=== PATIENT | female | born 1990 | race Caucasian/White ===

== ENCOUNTER 2017-07-22 12:23 | Emergency (ER) | payer OTHER ==
[~2017-07-22] VITALS: Ht 154.9 cm; Wt 81.6 kg
[~2017-07-22 12:23] MED LIST: AMOXICILLIN500 MG PO; ANAPROX DS550 MG PO; ATARAX,VISTARIL50 MG PO; ATIVAN0.5 MG PO; ATIVAN2 MG PO; AUGMENTIN 875 M1 TAB PO; BACTRIM DS 8001 TA1 PO; CARBIDOPA/LEVOD1 TA1 PO; CEPHALEXIN500 M1 PO; CIPRO250 MG PO; CIPRO500 MG PO; CIPROFLOXACIN500 MG PO; CLARITIN10 MG PO; CLARITIN5 MG/5 ML PO; CLEOCIN150 MG PO; CLINDAMYCIN150 MG PO; CODIENE PO; COMPAZINE10 MG PO; FIORICET 325 MG1 TAB PO; FLEXERIL10 MG PO; FLEXERIL5 MG PO; Fioricet 325 MG1 TAB PO; HYDROCODONE BIT1 T11 PO; INDERAL LA60 MG PO; INDERAL10 MG PO; INDERAL40 MG PO; KEFLEX500 MG PO; KLONOPIN PO; KLONOPIN1 MG PO; LOPRESSOR25 MG PO; MACROBID100 M1 PO; METHOCARBAMOL750 M1 PO; MULTIVITAMIN FO1 CAP PO; NKHM; NORFLEX100 MG PO; ONDANSETRON HYDR4 M1 PO; PEN-VEE K500 MG PO; POTASSIUM ACETATE; POTASSIUM PO; PYRIDIUM200 MG PO; ROBAXIN PO; ROBAXIN-750750 MG PO; ROBAXIN750 MG PO; SINEMET 25-100M1 TAB PO; SUBOXONE 8 MG-1 EACH SL; TAMIFLU75 MG PO; TORADOL10 MG PO; TRAMADOL HCL50 MG PO; TRIMOX500 MG PO; TYLENOL PO; TYLENOL W/CODEI1 TA2 PO; TYLENOL325 M1 PO; TYLENOL500 MG PO; ULTRAM50 MG PO; VALTREX500 MG PO; VICODIN 5/500 505 MG PO; VICODIN HP 6601 TA1 PO; VICODIN1 TAB PO; VISTARIL25 M2 PO; VISTARIL25 MG PO; VITAMINS PO; ZITHROMAX Z PA250 MG PO; ZITHROMAX100 MG/51 PO; ZOFRAN 4 MG ED2 TAB PO; ZOFRAN ODT4 MG SL; ZOLOFT50 MG PO
[2017-07-22] MEDS ORDERED: GABAPENTIN TAB600 MG PO (12:44)
[2017-07-22] MEDS ORDERED: PENICILLIN-VK500 MG PO (13:14)
== END 2017-07-22 13:26 | disposition home or self-care (01) ==
LOC: ED 12:23
DX: K02.9 Dental caries, unspecified (principal); F14.10 Cocaine abuse, uncomplicated; E66.9 Obesity, unspecified; F17.200 Nicotine dependence, unspecified, uncomplicated; F11.10 Opioid abuse, uncomplicated; Z86.14 Personal history of Methicillin resistant Staphylococcus aureus infection; Z90.49 Acquired absence of other specified parts of digestive tract; Z98.890 Other specified postprocedural states; Z88.6 Allergy status to analgesic agent; Z79.899 Other long term (current) drug therapy

== ENCOUNTER 2018-07-04 18:08 | Inpatient (IN) | payer OTHER ==
[~2018-07-04] VITALS: Ht 154.9 cm; Wt 81.6 kg
[~2018-07-04 18:08] MED LIST changes: +GABAPENTIN TAB600 MG PO; +PENICILLIN-VK500 MG PO
[2018-07-04 18:09] VITALS: BP 124/74
[2018-07-04 18:35] LABS: URINE AMPHETAMINES < 1000 (1000ng/ml); URINE BARBITURATES < 200 (200ng/ml); URINE BENZODIAZEPINES > 200 (200ng/ml); URINE CANNABINOIDS (THC) < 50 (50ng/ml); URINE COCAINE > 300 (300ng/ml); URINE METHADONE < 300 (300ng/ml); URINE OPIATES < 300 (300ng/ml)
[2018-07-04 18:36] LABS: BILIRUBIN NEGATIVE (NEGATIVE); BLOOD NEGATIVE (NEGATIVE); CLARITY CLEAR (CLEAR); COLOR YELLOW (YELLOW); GLUCOSE NEGATIVE (NEGATIVE); KETONE NEGATIVE (NEGATIVE); LEUKO ESTERASE TRACE (NEGATIVE); NITRITE NEGATIVE (NEGATIVE); PH 7.5 (5.0-9.0); SPECIFIC GRAVITY 1.015 (1.005-1.030); URINE PHENCYCLIDINE < 25 (25ng/ml); UROBILINOGEN 0.2 E.U./dl (0.2-1.0)
[2018-07-04] MEDS ORDERED: CLONAZEPAM0.5 M2 PO (18:41)
[2018-07-04] MEDS ORDERED: QUETIAPINE FUM200 M3 PO (18:41)
[2018-07-04] MEDS ORDERED: LATU40TA1 PO (18:42)
[2018-07-04 18:56] LABS: BACTERIA 3+; EPITHELIAL CELLS 21-30
[2018-07-04 19:15] LABS: BASO # 0.1 10*3/uL (0.0-0.1); BASO % 0.8 % (0.0-1.0); EOS # 0.1 10*3/uL (0.0-0.4); EOS % 1.7 % (1.0-4.0); HEMATOCRIT 44.6 % (37.0-47.0); HEMOGLOBIN 14.7 g/dl (12.0-16.0); LYMPH # 1.6 10*3/uL (1.3-4.4); LYMPH % 26.1 % (27.0-41.0); MEAN CELL VOLUME 90.1 fl (81.0-99.0); MEAN CORPUSCULAR HGB 29.7 pg (27.0-31.0); MEAN PLATELET VOLUME 9.5 fl (9.6-12.3); MONO # 0.4 10*3/uL (0.1-1.0); MONO % 6.1 % (3.0-9.0); NEUT # 3.9 10*3/uL (2.3-7.9); NEUT % 65.1 % (47.0-73.0); PLATELET COUNT AUTOMATED 260 10*3/uL (130-400); RED BLOOD COUNT 4.95 10*6/uL (4.10-5.10); RED CELL DISTRI WIDTH 13.5 % (0-14.5)
[2018-07-04 19:30] LABS: ALBUMIN 3.5 gm/dl (3.1-4.5); ALKALINE PHOSPHATASE 76 U/L (45-117); BUN 14 mg/dl (7-24); CHLORIDE 111 mmol/L (98-107); CREATININE 0.66 mg/dL (0.55-1.02); POTASSIUM 3.9 mmol/L (3.5-5.1); SGOT/AST 17 IU/L (3-35); SGPT/ALT 20 U/L (12-78); SODIUM 141 mmol/L (136-145)
[2018-07-04 19:31] LABS: ACETAMINOPHEN (TYLENOL) < 5.0 ug/ml (10-30); ETHYL ALCOHOL < 3.0 mg/dl (<3)
[2018-07-04 20:00] VITALS: BP 120/70
[2018-07-04 20:50] VITALS: BP 120/70
[2018-07-05] VITALS: BP 108/56
[2018-07-05 08:00] VITALS: BP 115/67
[2018-07-05 12:00] VITALS: BP 109/49
== END 2018-07-05 14:35 | disposition left against medical advice (07) | DRG 894 ==
LOC: ED 18:08 → 4E 19:59 → EDHOLD 19:59 → 4E 20:43
PROVIDERS: Emergency Medicine; Physician Assistant
DX: F11.23 Opioid dependence with withdrawal (principal); G25.81 Restless legs syndrome; B19.20 Unspecified viral hepatitis C without hepatic coma; F17.200 Nicotine dependence, unspecified, uncomplicated; F14.10 Cocaine abuse, uncomplicated; Z53.21 Procedure and treatment not carried out due to patient leaving prior to being seen by health care provider; Z88.6 Allergy status to analgesic agent; Z90.49 Acquired absence of other specified parts of digestive tract; Z98.891 History of uterine scar from previous surgery; Z71.6 Tobacco abuse counseling; Z83.79 Family history of other diseases of the digestive system; Z79.899 Other long term (current) drug therapy

== ENCOUNTER 2019-07-19 07:49 | Inpatient (IN) | payer OTHER ==
[~2019-07-19] VITALS: Ht 154.9 cm; Wt 90.7 kg
[~2019-07-19 07:49] MED LIST changes: +AUGMENTIN 875875 MG PO; +CLONAZEPAM0.5 M2 PO; +GABAPENTIN600 MG PO; +LATU40TA1 PO; +QUETIAPINE FUM200 M3 PO
[2019-07-19 07:50] VITALS: BP 137/88
[2019-07-19 09:01] LABS: BASO % 0.5 % (0.0-1.0); EOS # 0.1 10*3/uL (0.0-0.4); EOS % 0.7 % (1.0-4.0); HEMATOCRIT 39.8 % (37.0-47.0); HEMOGLOBIN 13.2 g/dl (12.0-16.0); LYMPH # 1.4 10*3/uL (1.3-4.4); LYMPH % 19.3 % (27.0-41.0); MEAN CELL VOLUME 92.8 fl (81.0-99.0); MEAN CORPUSCULAR HGB 30.8 pg (27.0-31.0); MEAN CORPUSCULAR HGB CONC 33.2 g/dl (33.0-37.0); MEAN PLATELET VOLUME 9.6 fl (9.6-12.3); MONO # 0.4 10*3/uL (0.1-1.0); MONO % 5.9 % (3.0-9.0); NEUT # 5.4 10*3/uL (2.3-7.9); NEUT % 73.3 % (47.0-73.0); PLATELET COUNT AUTOMATED 259 10*3/uL (130-400); RED BLOOD COUNT 4.29 10*6/uL (4.10-5.10); RED CELL DISTRI WIDTH 12.6 % (0-14.5); WHITE BLOOD COUNT 7.3 10*3/uL (4.8-10.8)
--- NOTE | 2019-07-19 09:17 | NUR ---
TOTAL OF 8 IV ATTEMPTS AMONG 3 NURSES WITH NO SUCCESS. DOROTEO ALVES NP, MADE AWARE AND IS SPEAKING WITH SURGERY NOW TO TRY TO GET A MID-LINE INSERTED. STEPHEN MADE AWARE.
[2019-07-19 09:19] LABS: ALBUMIN 3.6 gm/dl (3.1-4.5); ALKALINE PHOSPHATASE 79 U/L (45-117); BUN 16 mg/dl (7-24); CHLORIDE 108 mmol/L (98-107); CREATININE 0.51 mg/dL (0.55-1.02); LIPASE 31 U/L (73-393); POTASSIUM 4.1 mmol/L (3.5-5.1); SGOT/AST 16 IU/L (3-35); SGPT/ALT 19 U/L (12-78); SODIUM 139 mmol/L (136-145); TOTAL PROTEIN 8.1 gm/dL (6.4-8.2)
[2019-07-19 09:21] LABS: BETA-HCG, QUANT < 1.0 mIU/mL (1-3); TROPONIN I < 0.015 ng/ml (<0.045)
[2019-07-19 09:31] LABS: ACT PARTIAL THROMBO TIME 27.1 SECONDS (20.0-32.1)
--- NOTE | 2019-07-19 09:45 | NUR ---
SURGERY STAFF HERE TO ATTEMPT MID-LINE IV INSERTION.
--- NOTE | 2019-07-19 10:25 | NUR ---
MID-LINE IV SITE NOW INSERTED BY SURGERY, MED INFUSIONS PREVIOUSLY ORDERED WILL NOW BE INITIATED.
[2019-07-19 10:44] VITALS: BP 105/59
--- NOTE | 2019-07-19 11:04 | NUR ---
NURSE REPORT TO CARMEN FOR CONTINUATION OF CARE.
--- NOTE | 2019-07-19 11:17 | NUR ---
pt positioned for comfort with t.v. provided,safety precautions intact and call light within reach,no additional complaints voiced.
[2019-07-19] MEDS ORDERED: CELEXA20 MG PO (11:49)
[2019-07-19] MEDS ORDERED: SUBOXONE 4 MG-1 EACH SL (11:50)
[2019-07-19 11:56] VITALS: BP 102/58
--- NOTE | 2019-07-19 12:05 | NUR ---
MED REC UP TO DATE PER PATIENT.
--- NOTE | 2019-07-19 12:06 | NUR ---
A 29, admitted to [facility], under the services of ELIA Yang DO with a diagnosis of CELLULITIS/ABCESS LEG/TRUNK. Chief complaint is ABCESS. Patient arrived via stretcher from ER. Monitor applied. Initial assessment completed. Vital signs taken and recorded. ELIA YANG DO notified of admission to the unit. Orders received. See assessment for past medical history, medications and allergies. Patient and/or family oriented to unit. [facility] visitation policy reviewed. Clothing/patient valuable form completed. DIANA ESCUDERO
--- NOTE | 2019-07-19 13:35 | NUR ---
VANCOMYCIN D/C'D @ THIS TIME.
[2019-07-19 14:10] LABS: BILIRUBIN NEGATIVE (NEGATIVE); BLOOD 2+ (NEGATIVE); CLARITY CLOUDY (CLEAR); COLOR YELLOW (YELLOW); GLUCOSE NEGATIVE (NEGATIVE); KETONE 2+ (NEGATIVE); LEUKO ESTERASE TRACE (NEGATIVE); NITRITE POSITIVE (NEGATIVE); SPECIFIC GRAVITY >= 1.030 (1.005-1.030); UROBILINOGEN 0.2 E.U./dl (0.2-1.0)
[2019-07-19 14:27] LABS: URINE AMPHETAMINES > 1000 (1000ng/ml); URINE BARBITURATES < 200 (200ng/ml); URINE BENZODIAZEPINES > 200 (200ng/ml); URINE CANNABINOIDS (THC) < 50 (50ng/ml); URINE COCAINE < 300 (300ng/ml); URINE METHADONE < 300 (300ng/ml); URINE OPIATES < 300 (300ng/ml)
[2019-07-19 14:29] LABS: URINE PHENCYCLIDINE < 25 (25ng/ml)
[2019-07-19 14:50] LABS: BACTERIA 3+; RBC 21-30 rbc/hpf (0-2); WBC 31-40 wbc/hpf (0-5)
[2019-07-19 14:51] LABS: EPITHELIAL CELLS 31-40; MUCOUS 2+
--- NOTE | 2019-07-19 15:08 | NUR ---
CALLED TO PATIENTS ROOM, SHE REPORTED HER WOUND RIGHT OUTER THIGH HAD ERUPTED, WENT DOWN TO ROOM, PATIENTS WOUND OOZING MODERATE AMOUNT SEROUSANGENOUS THIN DRAINAGE, Meche CASILLAS ADVISED, AND REQUESTED DRAINAGE BE COLLECTED FOR CULTURE, CALL PLACED TO DR. WU FOR REFERAL LEFT VOICEMAIL ON HIS CELL PHONE.
[2019-07-19 16:00] VITALS: BP 131/77
--- NOTE | 2019-07-19 16:14 | NUR ---
PATIENT MEETS [facility]. PATIENT IS WANTING SENIOR LIVING TREATMENT. PATIENT SPOKE ABOUT THE [facility] IN [place], [place]. [place] STAFF WILL PROVIDE PATIENT WITH REFERRAL OPTIONS. MAGALY CHONG B.A. FINISHING WIRE SAWYER
[2019-07-19 20:00] VITALS: BP 100/80
--- NOTE | 2019-07-19 21:30 | NUR ---
WENT DOWN TO PATIENTS ROOM, TO GIVE IV ANTIBIOTIC, KNOCKED ON DOOR AND ANNOUNCED MYSELF, SHE STATED SHE WAS IN THE BATHROOM AND GOING TO TAKE A SHOWER, SHE OPENED HER DOOR AND I SAW A MALE VISTOR STANDING IN THE CORNER OF THE BATHROOM,IN HIS UNDERWARE AND PATIENT WAS NAKED. I ADVISED THE VISITOR, HE NEEDED TO GET DRESSED AND LEAVE, AND THAT VISITING HOURS WHERE OVER. I NOTIFIED EQUIPMENT MAN, PHYSICIAN AND CHARGE NURSE.
--- NOTE | 2019-07-19 21:36 | NUR ---
SECURITY CAME UP TO ESCORT VISITOR OUT, AND I STARTED PATIENTS IV ANTIBIOTICS.
--- NOTE | 2019-07-19 22:04 | NUR ---
WENT BACK TO PATIENTS ROOM TO CHECK IV, I KNOCKED ON DOOR AND WHEN I WALKED IN SHE WAS QUICKLY STUFFED HE HAND IN HER BAG, I ASKED WHAT SHE WAS DOING, SHE SAID SHE WAS GETTING A RAZOR OUT, I SPOKE WITH CHARGE NURSE AND WAS ADVISED TO ASK PATIENT TO EMPTY CONTENTS OF HER PURSE.
[2019-07-19] MEDS ORDERED: DOXYCYCLINE100 M3 PO (22:27)
--- NOTE | 2019-07-19 22:37 | NUR ---
CALLED INTO PATIENTS ROOM BY PRIMARY NURSE REGARDING SUSPICION OF QUICKLY SHOVING SOMETHING INTO PURSE WHEN ENTERING ROOM. UPON FURTHER INVESTIGATION NEEDLE WAS FOUND AND BOTTLE OF PILLS SUBSCRIBED TO A MISTER RADHA BAHENA. INFORMED PATIENT THAT THIS IS AGAINST POLICY AND SHE WOULD HAVE TO LEAVE. NURSING AGRICULTURAL EDUCATION PROFESSOR AWARE AND DR. HOWARD AWARE. AGRICULTURAL EDUCATION PROFESSOR ON FLOOR TO SPEAK WITH PATIENT.
--- NOTE | 2019-07-19 22:40 | NUR ---
I WENT BACK TO PATIENTS ROOM AND ASKED HER TO EMPTY CONTENTS OF HER PURSE SHE HAD A BOTTLE OF PILLS WITH ANOTHER PERSONS NAME ON IT AND A EMPTY SYRINGE, WHICH I CONFISCATED. I NOTIFIED CHARGE NURSE, WALL MAN,AND PHYSICIAN, DR. HOWARD ADVISED HE WOULD SEND ANTIBIOTICS TO PATIENTS PHARMACY AND PATIENT TO BE DISCHARGED AMA "ADMINISTATIVE DISCHARGE". PATIENTS MEDICATIONS WHERE COUNTED AND SENT TO PHARMACY.
--- NOTE | 2019-07-19 22:53 | NUR ---
PATIENT ESCORETED OFF FLOOR BY SECURITY.
== END 2019-07-19 23:27 | disposition left against medical advice (07) | DRG 383 ==
LOC: ED 07:49 → EDHOLD 08:30 → 4E 13:26
PROVIDERS: Emergency Medicine; Registered Nurse; ADMIT Internal Medicine
DX: L03.319 Cellulitis of trunk, unspecified (principal); F14.10 Cocaine abuse, uncomplicated; E66.9 Obesity, unspecified; Z86.14 Personal history of Methicillin resistant Staphylococcus aureus infection; F11.10 Opioid abuse, uncomplicated; F13.10 Sedative, hypnotic or anxiolytic abuse, uncomplicated; F15.10 Other stimulant abuse, uncomplicated; L02.219 Cutaneous abscess of trunk, unspecified; B18.2 Chronic viral hepatitis C; F19.10 Other psychoactive substance abuse, uncomplicated; E44.0 Moderate protein-calorie malnutrition; D69.0 Allergic purpura; Z53.29 Procedure and treatment not carried out because of patient's decision for other reasons; L03.119 Cellulitis of unspecified part of limb; L02.419 Cutaneous abscess of limb, unspecified; R00.0 Tachycardia, unspecified; Z90.49 Acquired absence of other specified parts of digestive tract; Z81.1 Family history of alcohol abuse and dependence; Z83.79 Family history of other diseases of the digestive system; Z82.62 Family history of osteoporosis; Z88.6 Allergy status to analgesic agent; Z79.899 Other long term (current) drug therapy; Z88.8 Allergy status to other drugs, medicaments and biological substances; Z68.37 Body mass index [BMI] 37.0-37.9, adult

== ENCOUNTER 2019-10-24 14:29 | Inpatient (IN) | payer OTHER ==
[~2019-10-24] VITALS: Ht 152.4 cm; Wt 89.5 kg
[~2019-10-24 14:29] MED LIST changes: +CELEXA20 MG PO; +DOXYCYCLINE100 M3 PO; +SUBOXONE 4 MG-1 EACH SL
[2019-10-24 14:39] VITALS: BP 112/60
[2019-10-24 16:00] VITALS: BP 119/78
--- NOTE | 2019-10-24 16:49 | NUR ---
[facility] STAFF SPOKE TO PATIENT. PATIENT MEETS [facility]. [facility] STAFF WILL FOLLOW UP WITH PATIENT WITH REFFERAL OPTIONS FOR HER AFTERCARE PLAN. MAGALY CHONG B.A. JIG BORE OPERATOR
[2019-10-24 16:53] LABS: URINE AMPHETAMINES < 1000 (1000ng/ml); URINE BARBITURATES < 200 (200ng/ml); URINE BENZODIAZEPINES < 200 (200ng/ml); URINE CANNABINOIDS (THC) < 50 (50ng/ml); URINE COCAINE < 300 (300ng/ml); URINE METHADONE < 300 (300ng/ml); URINE OPIATES < 300 (300ng/ml); URINE PHENCYCLIDINE < 25 (25ng/ml)
[2019-10-24 17:49] LABS: BASO % 0.9 % (0.0-1.0); EOS # 0.1 10*3/uL (0.0-0.4); EOS % 2.4 % (1.0-4.0); HEMATOCRIT 41.8 % (37.0-47.0); HEMOGLOBIN 13.1 g/dl (12.0-16.0); LYMPH # 1.4 10*3/uL (1.3-4.4); LYMPH % 31.3 % (27.0-41.0); MEAN CELL VOLUME 95.9 fl (81.0-99.0); MEAN CORPUSCULAR HGB CONC 31.3 g/dl (33.0-37.0); MEAN PLATELET VOLUME 9.7 fl (9.6-12.3); MONO # 0.4 10*3/uL (0.1-1.0); MONO % 7.8 % (3.0-9.0); NEUT # 2.6 10*3/uL (2.3-7.9); NEUT % 57.4 % (47.0-73.0); PLATELET COUNT AUTOMATED 232 10*3/uL (130-400); RED BLOOD COUNT 4.36 10*6/uL (4.10-5.10); RED CELL DISTRI WIDTH 13.8 % (0-14.5); WHITE BLOOD COUNT 4.5 10*3/uL (4.8-10.8)
[2019-10-24 18:00] LABS: INTERNATIONAL NORM RATIO 0.9 (2.0-3.5)
[2019-10-24 18:03] LABS: ALBUMIN 3.5 gm/dl (3.1-4.5); ALKALINE PHOSPHATASE 87 U/L (45-117); BUN 17 mg/dl (7-24); CHLORIDE 109 mmol/L (98-107); CREATININE 0.63 mg/dL (0.55-1.02); POTASSIUM 4.4 mmol/L (3.5-5.1); SGOT/AST 26 IU/L (3-35); SGPT/ALT 32 U/L (12-78); SODIUM 138 mmol/L (136-145); TOTAL PROTEIN 7.2 gm/dL (6.4-8.2)
[2019-10-24 18:06] LABS: ETHYL ALCOHOL < 3.0 mg/dl (<3)
[2019-10-24 18:15] VITALS: BP 119/78
--- NOTE | 2019-10-24 19:00 | NUR ---
ASSUMED CARE FOR THIS PT AT THIS TIME. PT DENIES NEED FOR ANY PRN'S. PT AMBULATING ABOUT ROOM.
--- NOTE | 2019-10-24 19:52 | NUR ---
PT GIVEN NICOTROL INHALER PER REQUEST. PT REMINDED OF NOT PERMIITTED TO LEAVE THE FLOOR. PT VOICES UNDERSTANDING. BELONGINGS SENT W/SECURITY. NO S/S OF SHIN EXPRESSED OR NOTED. CALL LIGHT IN REACH.
[2019-10-24 20:00] VITALS: BP 127/72
[2019-10-24 20:03] LABS: BLOOD 3+ (NEGATIVE); CLARITY SL CLOUDY (CLEAR); COLOR YELLOW (YELLOW)
[2019-10-24 20:04] LABS: BILIRUBIN NEGATIVE (NEGATIVE); GLUCOSE NEGATIVE (NEGATIVE); KETONE NEGATIVE (NEGATIVE); LEUKO ESTERASE NEGATIVE (NEGATIVE); NITRITE NEGATIVE (NEGATIVE); UROBILINOGEN 0.2 E.U./dl (0.2-1.0)
[2019-10-24 20:05] LABS: BACTERIA 3+; WBC 16-20 wbc/hpf (0-5)
[2019-10-25] VITALS: BP 99/67
--- NOTE | 2019-10-25 02:28 | NUR ---
PT SLEEPING QUIETLY IN BED. AWOKE EASILY FOR SUBUTEX. NO C/O WITHDRAWALS VOICED. CALL LIGHT IN REACH.
[2019-10-25 08:00] VITALS: BP 96/66
--- NOTE | 2019-10-25 12:12 | NUR ---
Patient asleep no signs of withdrawal.
--- NOTE | 2019-10-25 14:30 | NUR ---
Became suspicious of patient smoking when the hallway smelled of very strong cologne. Berenice from [facility] and I walked to patients room and was able to smell a hint of smoke. We both entered the bathroom and without a doubt there was a strong smell of cigarette smoke. Patient said "I don't have any cigarettes!" I said "I didn't ask if you had any cigarettes, I said it was very clear that you smoked a cigarette in the bathroom." She was informed by Berenice and Ebonie that she was out of the program.
--- NOTE | 2019-10-25 14:45 | NUR ---
Notified that patient was caught smoking in the bathroom. Was instructed to notify nursing supervisor hot dip tinning.
--- NOTE | 2019-10-25 14:55 | NUR ---
Notified nursing coating supervisor that patient was caught smoking in the bathroom. I also notified security to get patients belongings that were locked up.
--- NOTE | 2019-10-25 14:56 | NUR ---
Patient quickly left unit in the company of her boyfriend. Contacted security to let him know patient would pick items up in the lobby.
--- NOTE | 2019-10-25 15:24 | NUR ---
[facility] STAFF IN TO SEE PATIENT ABOUT HER AFTERCARE PLAN. [facility] STAFF SMELLED CIGARETTE SMOKE IN ROOM. [facility] STAFF NOTFIED NURSING STAFF. MAGALY CHONG B.A. STEEPLECHASE JOCKEY
== END 2019-10-25 14:56 | disposition other institution (70) | DRG 770 ==
LOC: ED 14:29 → EDHOLD 16:40 → 5E 16:40
PROVIDERS: Family Medicine; Physician Assistant; ADMIT Internal Medicine
DX: F11.23 Opioid dependence with withdrawal (principal); F13.239 Sedative, hypnotic or anxiolytic dependence with withdrawal, unspecified; F17.210 Nicotine dependence, cigarettes, uncomplicated; E66.9 Obesity, unspecified; D72.810 Lymphocytopenia; Z88.6 Allergy status to analgesic agent; Z79.899 Other long term (current) drug therapy; Z90.49 Acquired absence of other specified parts of digestive tract; Z83.79 Family history of other diseases of the digestive system; Z86.14 Personal history of Methicillin resistant Staphylococcus aureus infection; Z71.6 Tobacco abuse counseling; Z68.33 Body mass index [BMI] 33.0-33.9, adult

== ENCOUNTER → 2020-03-01 | Outpatient (CLI) | payer OTHER ==
[2020-03-01 08:28] LABS: BASO % 0.7 % (0.0-1.0); EOS # 0.1 10*3/uL (0.0-0.4); HEMATOCRIT 43.1 % (37.0-47.0); LYMPH # 2.1 10*3/uL (1.3-4.4); MEAN CELL VOLUME 95.6 fl (81.0-99.0); MEAN CORPUSCULAR HGB CONC 32.5 g/dl (33.0-37.0); MEAN PLATELET VOLUME 9.7 fl (9.6-12.3); MONO # 0.4 10*3/uL (0.1-1.0); MONO % 7.4 % (3.0-9.0); NEUT # 3.3 10*3/uL (2.3-7.9); NEUT % 54.6 % (47.0-73.0); PLATELET COUNT AUTOMATED 247 10*3/uL (130-400); RED BLOOD COUNT 4.51 10*6/uL (4.10-5.10); RED CELL DISTRI WIDTH 12.9 % (0-14.5)
[2020-03-01 09:21] LABS: FREE T4 0.97 ng/dl (0.76-1.46)
[2020-03-01 09:22] LABS: ALBUMIN 3.6 gm/dl (3.1-4.5); ALKALINE PHOSPHATASE 74 U/L (45-117); BUN 21 mg/dl (7-24); CHLORIDE 109 mmol/L (98-107); CREATININE 0.64 mg/dL (0.55-1.02); POTASSIUM 4.4 mmol/L (3.5-5.1); SGOT/AST 18 IU/L (3-35); SGPT/ALT 34 U/L (12-78); SODIUM 139 mmol/L (136-145); TOTAL PROTEIN 7.6 gm/dL (6.4-8.2)
[2020-03-01 09:26] LABS: THYROID STIM HORMONE (HS) 2.29 uIU/ml (0.358-4.75)
[2020-03-01 09:30] LABS: VITAMIN D, 25-HYDROXY 18.3 ng/mL (30-100)
[2020-03-02 08:08] LABS: HEP B CORE AB, IGM Negative (Negative); HEPATITIS B SURFACE AG Negative (Negative)
[2020-03-02 16:04] LABS: HEPATITIS C VIRUS ANTIBODY >11.0 s/co (0.0-0.9)
== END | disposition home or self-care (01) ==
LOC: LAB 07:44
PROVIDERS: Family Medicine
DX: F41.1 Generalized anxiety disorder (principal); F11.20 Opioid dependence, uncomplicated; E55.9 Vitamin D deficiency, unspecified; R53.83 Other fatigue; E74.00 Glycogen storage disease, unspecified; Z13.220 Encounter for screening for lipoid disorders

== ENCOUNTER 2020-04-22 20:13 | Emergency (ER) | payer OTHER ==
[~2020-04-22] VITALS: Ht 154.9 cm; Wt 83.9 kg
== END 2020-04-22 21:00 | disposition home or self-care (01) ==
LOC: ED 20:13
DX: J06.9 Acute upper respiratory infection, unspecified (principal); R05 Cough; F41.9 Anxiety disorder, unspecified; F32.9 Major depressive disorder, single episode, unspecified; Z20.828 Contact with and (suspected) exposure to other viral communicable diseases

== ENCOUNTER 2020-09-23 01:05 | Emergency (ER) | payer OTHER ==
[~2020-09-23] VITALS: Wt 81.6 kg
== END 2020-09-23 02:48 | disposition home or self-care (01) ==
LOC: ED 01:05
DX: S50.02XA Contusion of left elbow, initial encounter (principal); S00.81XA Abrasion of other part of head, initial encounter; S60.511A Abrasion of right hand, initial encounter; T14.8XXA Other injury of unspecified body region, initial encounter; Z88.8 Allergy status to other drugs, medicaments and biological substances; Z86.14 Personal history of Methicillin resistant Staphylococcus aureus infection; Z90.49 Acquired absence of other specified parts of digestive tract; Z90.89 Acquired absence of other organs; Z98.890 Other specified postprocedural states; Y04.8XXA Assault by other bodily force, initial encounter; Y93.89 Activity, other specified; Y92.89 Other specified places as the place of occurrence of the external cause; Y99.8 Other external cause status